=== PATIENT | female | born 1980 | race Caucasian/White ===

== ENCOUNTER → 2021-05-30 | Outpatient (CLI) | payer BC ==
--- NOTE | 2021-05-31 08:09 | KCIC ---
Bilateral digital screening mammograms: Reason for examination: Routine screening. There are no prior studies for comparison. This is a baseline exam. Interpretation was made with the benefit of CAD. Findings: Breast density: Category C. The breasts are heterogeneously dense which may obscure small masses. There are no dominant masses, suspicious calcifications or architectural distortions. There are numer ous scattered punctate calcifications in the inner right breast. Likely due to skin calcifications or artifact from powder or lotion on the skin. There is a tiny peripheral oval density in the inferior right breast which is likely due to a skin mole. Impression: No evidence of malignancy. Assessment: BI-RADS Category 1: Negative. Recommendation: Routine screening mammography. In the future 3-D mammography is recommended because t he breasts are dense. This patient's information has been entered into a reminder system for the patient to be notified wit h the results of her examination and a target date for the next mammogram. Electronically signed by: Iveth Ly MD (05/31/2021 8:07 AM) [id number]
== END ==
LOC: KCIC MAMMO 12:28
PROVIDERS: ATTEND Advanced Practice Midwife
DX: Z12.31 Encounter for screening mammogram for malignant neoplasm of breast (principal)
CPT/HCPCS: 77067